=== PATIENT | female | born 1975 | race Caucasian/White ===

== ENCOUNTER 2022-01-14 13:37 | Emergency (ER) | payer SELFPAY ==
[2022-01-14 14:42] VITALS: BP 116/69; PULSE 84; TEMP 98.4; BMI 34.5
[2022-01-14] MEDS ORDERED: ACETAMINOPHEN 500 MG TABLET (FP) PO ONE (14:58)
[2022-01-14] MEDS ORDERED: ONDANSETRON *ODT* 4 MG TABLET SL ONE (14:58)
== END 2022-01-14 16:38 | disposition home or self-care (01) ==
LOC: JER 13:37
DX: J06.9 Acute upper respiratory infection, unspecified (principal); B00.1 Herpesviral vesicular dermatitis
CPT/HCPCS: 99282-25; Q0162

== ENCOUNTER 2022-08-12 03:05 | Emergency (ER) | payer OTHER ==
[2022-08-12 03:52] VITALS: TEMP 96.9; BMI 33.8
[2022-08-12] MEDS ORDERED: FAMOTIDINE 20 MG/50 ML IVPB 20 MG/50 ML MG IVPB ONE ×2 (04:35→04:42)
[2022-08-12] MEDS ORDERED: SODIUM CHLORIDE 0.9% 500 ML INFUS.BAG IV ONE (04:35)
[2022-08-12] MEDS ORDERED: ACETAMINOPHEN 1000 MG/100 ML BAG IVPB ONE (04:35)
[2022-08-12] MEDS ORDERED: ACETAMINOPHEN INJECTION 100 ML IVPB ONE (04:42)
[2022-08-12 05:38] LABS: BLOOD UREA NITROGEN 17.4 mg/dL (7-18); CALCIUM 8.9 mg/dL (8.5-10.1)
[2022-08-12 05:39] LABS: ALBUMIN 3.4 g/dl (3.4-5.0)
[2022-08-12 05:42] LABS: CREATININE 1.1 mg/dL (0.55-1.3)
[2022-08-12 05:44] LABS: BILIRUBIN,TOTAL 0.2 mg/dL (0.2-1)
[2022-08-12 07:20] LABS: BASO % 0.5 % (0-2.0); EOS % 0.8 % (0-4.5); HEMATOCRIT 39.9 % (32.4-45.2); HEMOGLOBIN 13.1 GM/dL (10.7-15.3); LYMPH % 27.2 % (8-40); MCH 28.5 pg (25.7-33.7); MCHC 32.9 g/dl (32.0-36.0); MEAN CELL VOLUME 86.4 fl (80-96); MEAN PLT VOLUME 9.9 fl (7.5-11.1); MONO % 4.4 % (3.8-10.2); NEUT % 67.1 % (42.8-82.8); PLATELET COUNT 276 10^3/uL (134-434); RBC 4.62 M/mm3 (3.60-5.2); RDW 14.7 % (11.6-15.6); WHITE BLOOD COUNT 10.4 K/mm3 (4.0-10.0)
[2022-08-12 07:26] VITALS: BP 149/80; PULSE 58; RESP 16
[2022-08-12 08:35] LABS: URINE APPEARANCE CLEAR; URINE BILIRUBIN NEGATIVE (NEGATIVE); URINE COLOR YELLOW; URINE GLUCOSE (UA) NEGATIVE (NEGATIVE); URINE KETONE NEGATIVE (NEGATIVE); URINE LEUK ESTERASE NEGATIVE (NEGATIVE); URINE NITRITE NEGATIVE (NEGATIVE); URINE PROTEIN NEGATIVE (NEGATIVE); URINE UROBILINOGEN 0.2 mg/dL (0.2-1.0)
== END 2022-08-12 09:00 | disposition home or self-care (01) ==
LOC: JER 03:05
PROC: 3E0333Z Introduction of Anti-inflammatory into Peripheral Vein, Percutaneous Approach (ICD-10-PCS; principal; 2022-08-12)
PROC: 3E033GC Introduction of Other Therapeutic Substance into Peripheral Vein, Percutaneous Approach (ICD-10-PCS; 2022-08-12)
DX: R10.13 Epigastric pain (principal); R11.2 Nausea with vomiting, unspecified; R19.7 Diarrhea, unspecified; R55 Syncope and collapse
CPT/HCPCS: 0241U-QW; 36415; 71045-TC-FY; 80053; 81003; 83690; 84484; 85025; 87086; 93005; 93010; 99285-25